=== PATIENT | female | born 1955 | race Hispanic/Latino ===

== ENCOUNTER → 2017-06-18 | Outpatient (CLI) | payer OTHER ==
--- NOTE | 2017-06-18 19:32 | Diagnostic Imaging Report ---
EXAMINATION: Lumbar spine series. CLINICAL HISTORY: Low back pain, no trauma COMPARISON: None. DISCUSSION: 5 views of the lumbar spine are submitted for interpretation. Five nonrib-bearing lumbar type vertebral bodies are identified. No fractures, subluxations, spondylolisthesis or spondylolysis. 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 Vertebral body heights and intervertebral disk spaces are well preserved. The sacroiliac joints are normal. The soft tissues have a normal appearance. Diffuse calcifications of the abdominal aorta. 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 Diffuse calcifications of the abdominal aorta. Consider further evaluation with CTA abdomen and pelvis. Signed by: Dr. Beatriz He M.D. on 06/18/2017 7:29 PM
--- NOTE | 2017-06-18 19:33 | Diagnostic Imaging Report ---
SACR[facility] X-RAY - 2 VIEWS HISTORY: \[id number] \[id number] \S\Spondylolysis, lumbosacral region COMPARISON: None available. FINDINGS: Bones: No acute displaced fracture. Osseous alignment is within normal limits. Joints: Degenerative changes of posterior sacroiliac joints. Soft tissues: The soft tissues appear unremarkable. IMPRESSION: No acute radiographic abnormality. Signed by: Dr. Beatriz He M.D. on 06/18/2017 7:29 PM
== END ==
LOC: RAD 14:38
PROVIDERS: ATTEND Internal Medicine
DX: M43.07 Spondylolysis, lumbosacral region (principal)
CPT/HCPCS: 72110; 72220